=== PATIENT | female | born 1985 | race Caucasian/White ===

== ENCOUNTER 2024-10-15 16:54 | Emergency (ER) | payer BC ==
--- NOTE | 2024-10-15 16:56 | ERPHSYRPT ---
- History of Present Illness Time Seen by Provider: 10/15/24 16:56 Source: patient Exam Limitations: no limitations Physician History: This is a 38-year-old white female patient who arrives her private vehicle accompanied by her and is a patient of Dr. Prado with the complaint of dizziness and low back pain. She does not have chest pain however she does state that she does have bilateral anterior neck discomfort. The symptoms have been going on for 2 to 3 weeks and she has been on at least 2 rounds of oral antibiotics and Flomax with the assumption the patient symptoms are related to the finding during her that she has renal calculi. This is based on an ultrasound that was performed. She was last seen by outpatient clinic 2 days ago and was placed on Flomax and Bactrim DS. Her symptoms have not improved. In fact, she thinks her back pain has worsened. She has some associated shortness of breath today. Patient is 13 weeks and she is breast- feeding. She wants to hold off on narcotics but will except a Toradol injection. Patient denies numbness in her feet, denies urinary incontinence, denies bowel incontinence or constipation. Method of Injury: other (No injury) Quality: sharp (Lumbar level) Back Pain Location: lumbar spine Associated Symptoms: denies symptoms, light-headedness (Intermittent over the last few weeks), dizziness, lower back pain, No urinary incontinence, No loss of bowel control, No constipation, No numbness in legs/feet Previous symptoms: same symptoms as today, recently seen, recently treated Allergies/Adverse Reactions: hydrocodone Adverse Reaction (Intermediate, Verified 10/15/24 17:11) nausea, dizzy Home Medications: Pnv 119/Iron Fum/Folic Acid [ 19 Tablet] 1 each PO DAILY 10/15/24 [History] Smz/Tmp Ds Tablet [Bactrim Ds Tablet] 1 udtab PO BID 10/15/24 [History] Tamsulosin HCl [Flomax] 0.4 mg PO HS 10/15/24 [History] Travel Risk - International Travel Have you traveled outside of the country in past 3 weeks: No - Emerging Infectious Disease Are you exhibiting symptoms associated with any current EIDs: No - Review of Systems Constitutional: No Symptoms Eyes: No Symptoms Ears, Nose, & Throat: No Symptoms Respiratory: No Symptoms Cardiac: No Symptoms Abdominal/Gastrointestinal: No Symptoms Genitourinary Symptoms: Flank Pain (Bilateral) Musculoskeletal: No Symptoms Skin: No Symptoms Neurological: Dizziness Psychological: No Symptoms Endocrine: No Symptoms Hematologic/Lymphatic: No Symptoms Immunological/Allergic: No Symptoms All Other Systems: Reviewed and Negative - Past Medical History Pertinent Past Medical History: Yes - Nursing Vital Signs Nursing Vital Signs: Initial Vital Signs Temperature 97.5 F 10/15/24 17:03 Pulse Rate 100 H 10/15/24 17:03 Respiratory Rate 20 10/15/24 17:03 Blood Pressure 158/89 10/15/24 17:03 O2 Sat by Pulse Oximetry 99 10/15/24 17:03 Pain Scale Pain Intensity [Lower Back] 6 Pain Intensity 6 - Physical Exam General Appearance: no apparent distress, alert, anxiety Eye Exam: PERRL/EOMI, eyes nml inspection Ears, Nose, Throat Exam: normal ENT inspection, moist mucous membranes Neck Exam: normal inspection, non-tender, supple, full range of motion Respiratory Exam: normal breath sounds, lungs clear, airway intact, No chest tenderness, No respiratory distress Cardiovascular Exam: regular rate/rhythm, normal heart sounds, normal peripheral pulses Gastrointestinal Exam: soft, normal bowel sounds, No tenderness Pelvic Exam: not done Rectal Exam: not done Back Exam: normal inspection, normal range of motion, No CVA tenderness, No vertebral tenderness Extremity Exam: normal inspection, normal range of motion, pelvis stable Neurologic Exam: alert, oriented x 3, cooperative, 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 QTc is 477) Ordered Tests: Active Orders 24 hr Category Date Time Status EKG-ER Only STAT Care 10/15/24 17:48 Active IV Insertion STAT Care 10/15/24 17:16 Active ABDOMEN AND PELVIS W/0 CONTRAS [CT] Stat Exams 10/15/24 18:34 Taken HEAD WITHOUT CONTRAST [CT] Stat Exams 10/15/24 18:34 Taken AMYLASE Stat Lab 10/15/24 17:42 Completed CBC W DIFF Stat Lab 10/15/24 17:42 Completed CMP Stat Lab 10/15/24 17:42 Completed D-DIMER QUANTITATIVE Stat Lab 10/15/24 17:42 Completed LIPASE Stat Lab 10/15/24 17:42 Completed MAGNESIUM Stat Lab 10/15/24 17:42 Completed POCT GLUCOSE Stat Lab 10/15/24 17:18 Completed TROPONIN Q4H Lab 10/15/24 17:42 Completed TROPONIN Q4H Lab 10/15/24 22:00 Ordered TROPONIN Q4H Lab 10/16/24 02:00 Ordered UA W/RFX UR CULTURE Stat Lab 10/15/24 17:36 Completed Medication Summary Generic Name Dose Route Start Last Admin Trade Name Freq PRN Reason Stop Dose Admin Sodium Chloride 1,000 mls @ 100 mls/hr 10/15/24 17:30 10/15/24 19:37 Sodium Chloride 0.9% 1000 Ml IV 11/14/24 17:29 100 mls/hr .Q10H CHIKIS Administration Discontinued Medications Generic Name Dose Route Start Last Admin Trade Name Freq PRN Reason Stop Dose Admin Acetaminophen 650 mg 10/15/24 19:32 10/15/24 19:36 Acetaminophen 325 Mg Tablet PO 10/15/24 19:33 650 mg STAT STA Administration Acetaminophen Confirm 10/15/24 19:33 Acetaminophen 325 Mg Tablet Administered 10/15/24 19:34 Dose 650 mg .ROUTE .STK-MED ONE Hydromorphone HCl 1 mg 10/15/24 17:16 10/15/24 20:53 Hydromorphone 1 Mg/1ml Inj IV 10/15/24 17:17 1 mg STAT ONE Administration Hydromorphone HCl Confirm 10/15/24 20:45 Hydromorphone 1 Mg/1ml Inj Administered 10/15/24 20:46 Dose 1 mg .ROUTE .STK-MED ONE Ketorolac Tromethamine 30 mg 10/15/24 17:16 10/15/24 20:53 Ketorolac Tromethamine 30 Mg/Ml Inj IV 10/15/24 17:17 30 mg STAT ONE Administration Ketorolac Tromethamine Confirm 10/15/24 20:45 Ketorolac Tromethamine 30 Mg/Ml Inj Administered 10/15/24 20:46 Dose 30 mg .ROUTE .STK-MED ONE Magnesium Oxide 400 mg 10/15/24 18:35 10/15/24 19:36 Magnesium Oxide 400 Mg Tablet PO 10/15/24 18:36 400 mg STAT ONE Administration Magnesium Oxide Confirm 10/15/24 19:31 Magnesium Oxide 400 Mg Tablet Administered 10/15/24 19:32 Dose 400 mg .ROUTE .STK-MED ONE Ondansetron HCl 4 mg 10/15/24 17:16 10/15/24 20:52 Ondansetron Hcl 4 Mg/2 Ml Vial IV 10/15/24 17:17 4 mg STAT ONE Administration Ondansetron HCl Confirm 10/15/24 20:45 Ondansetron Hcl 4 Mg/2 Ml Vial Administered 10/15/24 20:46 Dose 4 mg .ROUTE .STK-MED ONE Potassium Chloride 10 meq 10/15/24 18:35 10/15/24 19:36 Potassium Chloride Tab 10 Meq Tab PO 10/15/24 18:36 10 meq STAT ONE Administration Potassium Chloride Confirm 10/15/24 19:31 Potassium Chloride Tab 10 Meq Tab Administered 10/15/24 19:32 Dose 10 meq .ROUTE .STK-MED ONE Lab/Rad Data: Laboratory Result Diagrams 10/15/24 17:42 10/15/24 17:42 Laboratory Results 10/15/24 10/15/24 10/15/24 Range/Units 17:42 17:42 17:42 WBC (3.98-10.04) x10^3/uL RBC (3.93-5.22) x10^6/uL Hgb (11.2-15.7) g/dL Hct (34.1-44.9) % MCV (79.4-94.8) fL MCH (25.6-32.2) pg MCHC (32.2-35.5) g/dL RDW (11.7-14.4) % Plt Count (182-369) x10^3/uL MPV (9.4-12.3) fL Gran % (34.0-71.1) % Immature Gran % (Auto) (0.001-0.429) % Nucleat RBC Rel Count (0.00-0.2) % Eos # (Auto) (0.04-0.36) x10^3/uL Immature Gran # (Auto) (0.001-0.031) x10^3u/L Absolute Lymphs (auto) (1.18-3.74) x10^3/uL Absolute Monos (auto) (0.24-0.86) x10^3/uL Absolute Nucleated RBC (0.00-0.012) x10^3u/L Lymphocytes % (19.3-51.7) % Monocytes % (4.7-12.5) % Eosinophils % (0.7-5.8) % Basophils % (0.1-1.2) % Absolute Granulocytes (1.56-6.13) x10^3/uL Basophils # (0.01-0.08) x10^3/uL D-Dimer 0.26 (0.0-0.50) mg/L Sodium 138 (135-145) mmol/L Potassium 3.4 L (3.5-5.1) mmol/L Chloride 105 (98-107) mmol/L Carbon Dioxide 24 (22-30) mmol/L Anion Gap 12.6 (5-15) MEQ/L BUN 9 (7-17) mg/dL Creatinine 0.80 (0.52-1.04) mg/dL Estimated GFR 96.1 ML/MIN Glucose 100 (74-106) mg/dL POC Glucometer (74 to 106) mg/dL Calcium 9.2 (8.4-10.2) mg/dL Magnesium 1.2 L (1.6-2.3) mg/dL Total Bilirubin 0.50 (0.2-1.3) mg/dL AST 23 (14-36) U/L ALT 17 (0-35) U/L Alkaline Phosphatase 65 (38-126) U/L Troponin I < 0.012 (0.000-0.033) ng/mL Serum Total Protein 6.8 (6.3-8.2) g/dL Albumin 4.3 (3.5-5.0) g/dL Amylase 66 (30-110) U/L Lipase 45 (23-300) U/L Urine Color (Yellow) Urine Appearance (Clear) Urine pH (4.6-8.0) Ur Specific [place] (1.005-1.030) Urine Protein (Negative) Urine Glucose (UA) (Negative) mg/dL Urine Ketones (Negative) Urine Blood (Negative) Urine Nitrite (Negative) Urine Bilirubin (Negative) Urine Urobilinogen (0.2) mg/dL Ur Leukocyte Esterase (Negative) U Hyaline Cast (Auto) (0-2) /LPF Urine Microscopic RBC (0-5) /HPF Urine Microscopic WBC (0-5) /HPF Ur Epithelial Cells (None Seen) /HPF Urine Bacteria (None Seen) /HPF Urine Culture Reflexed (NO) 10/15/24 10/15/24 10/15/24 Range/Units 17:42 17:36 17:18 WBC 6.8 (3.98-10.04) x10^3/uL RBC 4.36 (3.93-5.22) x10^6/uL Hgb 12.1 (11.2-15.7) g/dL Hct 37.7 (34.1-44.9) % MCV 86.5 (79.4-94.8) fL MCH 27.8 (25.6-32.2) pg MCHC 32.1 L (32.2-35.5) g/dL RDW 14.5 H (11.7-14.4) % Plt Count 204 (182-369) x10^3/uL MPV 9.2 L (9.4-12.3) fL Gran % 62.8 (34.0-71.1) % Immature Gran % (Auto) 0.4 (0.001-0.429) % Nucleat RBC Rel Count 0.0 (0.00-0.2) % Eos # (Auto) 0.06 (0.04-0.36) x10^3/uL Immature Gran # (Auto) 0.03 (0.001-0.031) x10^3u/L Absolute Lymphs (auto) 2.07 (1.18-3.74) x10^3/uL Absolute Monos (auto) 0.35 (0.24-0.86) x10^3/uL Absolute Nucleated RBC 0.00 (0.00-0.012) x10^3u/L Lymphocytes % 30.4 (19.3-51.7) % Monocytes % 5.1 (4.7-12.5) % Eosinophils % 0.9 (0.7-5.8) % Basophils % 0.4 (0.1-1.2) % Absolute Granulocytes 4.27 (1.56-6.13) x10^3/uL Basophils # 0.03 (0.01-0.08) x10^3/uL D-Dimer (0.0-0.50) mg/L Sodium (135-145) mmol/L Potassium (3.5-5.1) mmol/L Chloride (98-107) mmol/L Carbon Dioxide (22-30) mmol/L Anion Gap (5-15) MEQ/L BUN (7-17) mg/dL Creatinine (0.52-1.04) mg/dL Estimated GFR ML/MIN Glucose (74-106) mg/dL POC Glucometer 87 (74 to 106) mg/dL Calcium (8.4-10.2) mg/dL Magnesium (1.6-2.3) mg/dL Total Bilirubin (0.2-1.3) mg/dL AST (14-36) U/L ALT (0-35) U/L Alkaline Phosphatase (38-126) U/L Troponin I (0.000-0.033) ng/mL Serum Total Protein (6.3-8.2) g/dL Albumin (3.5-5.0) g/dL Amylase (30-110) U/L Lipase (23-300) U/L Urine Color Yellow (Yellow) Urine Appearance Clear (Clear) Urine pH 7.0 (4.6-8.0) Ur Specific [place] <=1.005 (1.005-1.030) Urine Protein Negative (Negative) Urine Glucose (UA) Negative (Negative) mg/dL Urine Ketones Negative (Negative) Urine Blood Negative (Negative) Urine Nitrite Negative (Negative) Urine Bilirubin Negative (Negative) Urine Urobilinogen 0.2 (0.2) mg/dL Ur Leukocyte Esterase Trace A (Negative) U Hyaline Cast (Auto) NONE SEEN (0-2) /LPF Urine Microscopic RBC 0-2 (0-5) /HPF Urine Microscopic WBC 0-2 (0-5) /HPF Ur Epithelial Cells None Seen (None Seen) /HPF Urine Bacteria None Seen (None Seen) /HPF Urine Culture Reflexed NO (NO) - Progress Progress: improved, re-examined Progress Note: 10/15/24 17:52 My medical decision making and the assignment of moderate complexity of this patient's medical issue today is based on patient's past medical history, review of the patient's medication list, reviewed patient drug allergy list, and physical findings on examination. The workup in this patient in the intravenous line, urinalysis, amylase, lipase, D-dimer level, troponin level, twelve-lead, CT scan without contrast, CT scan of the abdomen pelvis without contrast. If the D-dimer is significantly elevated, we will order a CT scan of the chest with contrast. Differential diagnosis includes but is not to anxiety about health, acute intracranial abnormality, arrhythmia, delayed abnormalities, dehydration, urinary tract infection, pyelonephritis, pancreatitis, ureterolithiasis, lumbar spine abnormality 10/15/24 21:05 I interpreted the patient's laboratory data results. Based on the laboratory data results there are no acute, emergent medical findings. The following CT scan were performed without contrast and were interpreted by the radiologist: CT scan of the head without contrast shows a normal head CT skin without contrast. There were no comparison films. CT scan of the abdomen pelvis without contrast shows nonobstructing 2 mm left renal calculus. There is moderate diffuse fecal stasis. Counseled pt/family regarding: lab results, diagnosis, rad results Medical Desision Making - Independent Historian Additional History obtained from: Spouse - Diagnostic Testing Diagnostic test were ordered, analyzed, and reviewed by me: Yes Radiological Interpretation: Reviewed by me, Teleradiologist Report - Risk of complications Low Risk: Low risk of morbidity from additional dx testing or treatment - Departure Departure Disposition: Home Clinical Impression: Dizziness, Back pain Condition: Stable Critical Care Time: No Referrals: EUGENIA PRADO DO [Primary Care Provider, [facility]] - Follow up/PCP as directed Additional Instructions: Drink plenty of clear liquids. Stop your Flomax and antibiotic medication. Call your primary care provider tomorrow, 10/16/2024, to make arrangements for follow-up appointment for further evaluation and management.
[2024-10-15 17:11] VITALS: TEMP 97.5
[2024-10-15 17:38] LABS: BASOPHIL % 0.4 % (0.1-1.2); Basophil (Absolute #) 0.03 x10^3/uL (0.01-0.08); Eosinophil (Absolute #) 0.06 x10^3/uL (0.04-0.36); Hematocrit 37.7 % (34.1-44.9); Hemoglobin 12.1 g/dL (11.2-15.7); IMMATURE GRAN # 0.03 x10^3u/L (0.001-0.031); IMMATURE GRAN % 0.4 % (0.001-0.429); Lymphocyte (Absolute #) 2.07 x10^3/uL (1.18-3.74); Mean Corpuscular Hemoglobin 27.8 pg (25.6-32.2); Mean Corpuscular Hgb Concent. 32.1 g/dL (32.2-35.5); Monocyte (Absolute #) 0.35 x10^3/uL (0.24-0.86); NUCLEATED RBC # 0.00 x10^3u/L (0.00-0.012); NUCLEATED RBC % 0.0 % (0.00-0.2); Platelet Count 204 x10^3/uL (182-369); Red Blood Count 4.36 x10^6/uL (3.93-5.22); White Blood Count 6.8 x10^3/uL (3.98-10.04)
[2024-10-15 17:53] LABS: Glucose, Urine Negative (Negative); Protein,Urine Dip Negative (Negative); RBC 0-2 /HPF (0-5); WBC 0-2 /HPF (0-5)
[2024-10-15 17:57] LABS: Calcium 9.2 mg/dL (8.4-10.2); Carbon Dioxide 24.0 mmol/L (22-30); Creatinine 1 0.8 mg/dL (0.52-1.04); EST GLOMERULAR FILTRATION RATE 96.1 ML/MIN; Glucose 100.0 mg/dL (74-106); Potassium 3.4 mmol/L (3.5-5.1); SGOT/AST 23.0 U/L (14-36); SGPT/ALT 17.0 U/L (0-35); Total Protein 6.8 g/dL (6.3-8.2)
[2024-10-15 18:27] LABS: TROPONIN < 0.012 ng/mL (0.000-0.033)
[2024-10-15] MEDS ORDERED: Klor Con ONE (19:31)
[2024-10-15] MEDS ORDERED: MAG-OX 400 ONE (19:31)
[2024-10-15] MEDS ORDERED: TYLENOL 325 MG ONE (19:33)
[2024-10-15] MEDS: MAG-OX 400 PO ONE (19:36)
[2024-10-15] MEDS: Klor Con PO ONE (19:36)
[2024-10-15] MEDS: TYLENOL 325 MG PO STA (19:36)
[2024-10-15] MEDS ORDERED: Hydromorphone 1 mg/ml Injection ONE (20:45)
[2024-10-15] MEDS ORDERED: TORAdol 30 mg Injection ONE (20:45)
[2024-10-15] MEDS ORDERED: Zofran 4 MG/2 ML VIAL ONE (20:45)
[2024-10-15] MEDS: Zofran 4 MG/2 ML VIAL IV ONE (20:52)
[2024-10-15] MEDS: TORAdol 30 mg Injection IV ONE (20:53)
[2024-10-15] MEDS: Hydromorphone 1 mg/ml Injection IV ONE (20:53)
[2024-10-15 22:02] VITALS: RESP 14
[2024-10-15 23:11] VITALS: BP 110/63; PULSE 53; O2SAT 98
--- NOTE | 2024-10-16 08:37 | XRAY ---
Indication: Headache and dizziness. Multiple contiguous axial images obtained through the head without contrast. Comparison: None Normal appearing brain parenchyma, ventricles, and bony calvarium. Visualized paranasal sinuses and mastoid air cells are clear. Impression: Normal CT head without contrast exam.
--- NOTE | 2024-10-16 08:39 | XRAY ---
Indication: Flank pain. Kidney stones. Multiple contiguous axial images obtained through the abdomen and pelvis without contrast using renal stone protocol. Comparison: None Lung bases clear. Heart not enlarged. Left lower renal calyx demonstrates 3 mm nonobstructing calculus. No other renal calculus or evidence for obstructive uropathy. Noncontrasted stomach and bowel loops appear nonobstructed. Normal appendix. There is moderate diffuse scattered colonic fecal debris greatest in right hemicolon. No free fluid/air. Remaining liver, gallbladder, pancreas, spleen, adrenal glands, kidneys, ureters, bladder, uterus, and aorta are unremarkable for noncontrast exam. Osseous structures intact. Impression: 1. Nonobstructing left renal micro calculus and moderate diffuse fecal stasis. 2. Remaining CT abdomen/pelvis without contrast exam is normal.
== END 2024-10-15 23:40 | disposition home or self-care (01) ==
LOC: ED 16:54
DX: R42 Dizziness and giddiness (principal); M54.50 Low back pain, unspecified; M54.2 Cervicalgia; Z79.899 Other long term (current) drug therapy